=== PATIENT | male | born 1965 | race Caucasian/White ===

== ENCOUNTER 2023-01-05 11:18 | Emergency (ER) | payer MEDICARE ==
[2023-01-05] MEDS ORDERED: Ketorolac 30 MG/ML SDV IM ONE (13:18)
== END 2023-01-05 14:10 | disposition home or self-care (01) ==
LOC: JP.ED 11:18
DX: M10.071 Idiopathic gout, right ankle and foot (principal); E78.00 Pure hypercholesterolemia, unspecified; I10 Essential (primary) hypertension; Z79.82 Long term (current) use of aspirin; Z79.899 Other long term (current) drug therapy
CPT/HCPCS: 36415; 84550; 96372; 99283; J1885